=== PATIENT | female | born 1985 | race Two or more races ===

== ENCOUNTER 2022-09-28 09:07 | Emergency (ER) | payer SELFPAY ==
[~2022-09-28] VITALS: Ht 160 cm; Wt 93.0 kg
[2022-09-28 09:12] VITALS: BP 143/79
--- NOTE | 2022-09-28 09:15 | NUR ---
PT AMBULATED TO BED 4
--- NOTE | 2022-09-28 09:29 | NUR ---
37YO FEMALE PT C/O DYSURIA, GENITAL ITCHYINESS, NAUSEA AND CHILLS XYESTERDAY. REPORTS INCREASED U FREQUENCY W/ BLOOD ON WIPING. DENIES RELIEF AFTER OTC UTI MEDICATION, V/D, FEVER OR BACK PAIN. PT AAOX4, STANDING BEDSIDE PER COMFORT HX:DENIES NKA
--- NOTE | 2022-09-28 09:33 | NUR ---
MD VELOZ AT BEDSIDE FOR EVALUATION
--- NOTE | 2022-09-28 09:35 | NUR ---
37/F PRESENTS TO ED WITH C/O DYURIA, NAUSEA, CHILLS AND VAGINAL ITCHING SINCE YESTERDAY. PATIENT REPORTS URINARY FREQUENCY AND HEMATURIA TODAY, PATIENT REPORTS TAKING OTC UTI MEDS WITH NO RELIEF. DENIES FEVERS.
[2022-09-28 09:41] LABS: APPEARANCE,URINE CLEAR (CLEAR); BILIRUBIN,URINE NEGATIVE (NEGATIVE); BLOOD, URINE MODERATE (NEGATIVE); COLOR,URINE YELLOW (YELLOW); NITRITE, URINE POSITIVE (NEGATIVE); UGLUCOSE NEGATIVE (NEGATIVE)
[2022-09-28 09:42] LABS: LEUKOCYTE ESTERASE ,URINE 2+ (NEGATIVE)
[2022-09-28] MEDS ORDERED: NITR100C7 PO (09:48)
[2022-09-28 09:52] LABS: RBC,URINE 0-5 /HPF (0-5)
[2022-09-28 09:53] LABS: WBC,URINE 60-80 /HPF (0-5)
--- NOTE | 2022-09-28 09:57 | NUR ---
Patient discharged with v/s stable. Written and verbal after care instructions FOR UTI given and explained. Patient alert, oriented and verbalized understanding of instructions. Ambulatory with steady gait. All questions addressed prior to discharge. ID band removed. Patient advised to follow up with PMD. Rx of MACROBID given.Opportunity to ask questions provided and answered.
--- NOTE | 2022-09-28 09:58 | NUR ---
The patient's care was reviewed and supervised by Genia Colon RN.
== END 2022-09-28 09:57 | disposition home or self-care (01) ==
LOC: MED 09:07
DX: N39.0 Urinary tract infection, site not specified (principal); Z79.899 Other long term (current) drug therapy
CPT/HCPCS: 81001; 81025; 87086; 99283